=== PATIENT | female | born 1945 | race Caucasian/White ===

== ENCOUNTER → 2018-02-22 | Outpatient (CLI) | payer MEDICARE, OTHER ==
[~2018-02-22] MED LIST: ASPI81EC PO; ATEN50 PO; CARV25 PO; CARV6.25; CIPR500 PO; CIPRO500 MG PO; CLON.1 PO; CLON.2 PO; CLONIDINE; CODACE30 PO; COREG; EDARBYCLOR 40-1 EAC1 PO; FISH1000 PO; HYDACE5 PO; INSDET100 SC; INSUASPI SC; LEVOTHYROXINE; LEVSOD25 PO; LEVSOD50 PO; LISI10 PO; LOSARTAN; LOVA20 PO; MAGCHL64ER; METO50ER PO; METR500 PO; NEBI5 PO; NORTRIPTYLLINE; Nortriptyline H25 MG PO; ONDA4ODT MM; PSYL5.85P PO; Pyridium200 MG PO; RISP.5 PO; RXHYDACE PO; RXONDA4ODT MM; SULTRIDS PO; VALS80 PO
== END | disposition home or self-care (01) ==
LOC: LAB SHORT 08:43 → LAB EV 08:43
DX: N39.0 Urinary tract infection, site not specified (principal)
CPT/HCPCS: 87077; 87086; 87186

== ENCOUNTER → 2018-04-10 | Outpatient (CLI) | payer MEDICARE, OTHER | END | disposition home or self-care (01) | LOC: LAB SHORT 17:40 → LAB EV 17:40 | DX: N39.0 Urinary tract infection, site not specified (principal) | CPT/HCPCS: 87077; 87086; 87186 ==

== ENCOUNTER → 2018-04-17 | Outpatient (CLI) | payer MEDICARE, OTHER | END | disposition home or self-care (01) | LOC: LAB 13:34 → LAB SHORT 13:34 | DX: N39.0 Urinary tract infection, site not specified (principal) | CPT/HCPCS: 87077; 87086; 87186 ==

== ENCOUNTER → 2019-08-05 | Outpatient (CLI) | payer MEDICARE, OTHER ==
[2019-08-07 21:25] LABS: Adenovirus F 40/41 Not Detected (NOT DETECT); Astrovirus Not Detected (NOT DETECT); Campylobacter Sp Not Detected (NOT DETECT); Cryptosporidium Not Detected (NOT DETECT); Cyclospora Cayetanensis Not Detected (NOT DETECT); E. Coli O157 Not Detected (NOT DETECT); Entamoeba Histolytica Not Detected (NOT DETECT); Enteroaggregative E. coli-EAEC Not Detected (NOT DETECT); Enteropathogenic E. coli-EPEC Not Detected (NOT DETECT); Enterotoxigenic E. coli-ETEC Not Detected (NOT DETECT); Giardia Lamblia Not Detected (NOT DETECT); Norovirus GI/GII Not Detected (NOT DETECT); Plesiomonas Shigelloides Not Detected (NOT DETECT); Rotavirus A Not Detected (NOT DETECT); Salmonella Sp Not Detected (NOT DETECT); Sapovirus Not Detected (NOT DETECT); Shiga Toxin-prod E. coli-STEC Not Detected (NOT DETECT); Shigella/Enteroin E. coli-EIEC Not Detected (NOT DETECT); Vibrio Cholerae Not Detected (NOT DETECT); Vibrio Sp Not Detected (NOT DETECT); Yersinia Enterocolitica Not Detected (NOT DETECT)
== END | disposition home or self-care (01) ==
LOC: LAB 16:00 → LAB SHORT 16:00
PROVIDERS: Internal Medicine Gastroenterology
DX: R19.7 Diarrhea, unspecified (principal); R63.4 Abnormal weight loss
CPT/HCPCS: 0097U

== ENCOUNTER → 2021-06-25 | Outpatient (CLI) | payer MEDICARE, OTHER ==
[~2021-06-25] MED LIST changes: +AMIT10 PO; +ASPI81CH PO; +EDARBI40 MG PO; +EDARBYCLOR PO; -INSDET100 SC; +LEVEMIR100 UNIT/1 SC; -MAGCHL64ER; +MAGCHL64ER PO; +OXYC5 PO; +SITA100T2 PO; +TURMER PO
[2021-06-25 18:37] LABS: Campylobacter Sp Not Detected (NOT DETECT)
[2021-06-25 18:38] LABS: Adenovirus F 40/41 Not Detected (NOT DETECT); Astrovirus Not Detected (NOT DETECT); Cryptosporidium Not Detected (NOT DETECT); Cyclospora Cayetanensis Not Detected (NOT DETECT); E. Coli O157 Not Detected (NOT DETECT); Entamoeba Histolytica Not Detected (NOT DETECT); Enteroaggregative E. coli-EAEC Not Detected (NOT DETECT); Enteropathogenic E. coli-EPEC Detected (NOT DETECT); Enterotoxigenic E. coli-ETEC Not Detected (NOT DETECT); Giardia Lamblia Not Detected (NOT DETECT); Norovirus GI/GII Not Detected (NOT DETECT); Plesiomonas Shigelloides Not Detected (NOT DETECT); Rotavirus A Not Detected (NOT DETECT); Salmonella Sp Not Detected (NOT DETECT); Sapovirus Not Detected (NOT DETECT); Shiga Toxin-prod E. coli-STEC Not Detected (NOT DETECT); Shigella/Enteroin E. coli-EIEC Not Detected (NOT DETECT); Vibrio Cholerae Not Detected (NOT DETECT); Vibrio Sp Not Detected (NOT DETECT); Yersinia Enterocolitica Not Detected (NOT DETECT)
== END | disposition home or self-care (01) ==
LOC: LAB 12:00 → LAB SHORT 12:00 → LAB FUT 06-19 13:25
PROVIDERS: Internal Medicine Gastroenterology
DX: R19.4 Change in bowel habit (principal); R19.7 Diarrhea, unspecified
CPT/HCPCS: 0097U

== ENCOUNTER 2021-07-14 10:52 | Day surgery (SDC) | payer MEDICARE, OTHER ==
[~2021-07-14] VITALS: Ht 170.2 cm; Wt 64.9 kg
== END 2021-07-14 12:45 | disposition home or self-care (01) ==
LOC: ORSCSDS 10:52
PROVIDERS: Internal Medicine Gastroenterology
PROC: 0DBE8ZX Excision of Large Intestine, Via Natural or Artificial Opening Endoscopic, Diagnostic (ICD-10-PCS; principal; 2021-07-14 12:30)
PROC: 0DBH8ZX Excision of Cecum, Via Natural or Artificial Opening Endoscopic, Diagnostic (ICD-10-PCS; principal; 2021-07-14 12:30)
DX: R19.4 Change in bowel habit (principal); K57.30 Diverticulosis of large intestine without perforation or abscess without bleeding; D12.0 Benign neoplasm of cecum; E03.9 Hypothyroidism, unspecified; Z87.891 Personal history of nicotine dependence; E11.9 Type 2 diabetes mellitus without complications; Z79.4 Long term (current) use of insulin; Z79.899 Other long term (current) drug therapy
CPT/HCPCS: 82947; 88305; J2704; J7120

== ENCOUNTER 2021-08-12 05:38 | Inpatient (IN) | payer MEDICARE, OTHER ==
[~2021-08-12] VITALS: Ht 170.2 cm; Wt 65.9 kg
[~2021-08-12 05:38] MED LIST changes: -AMIT10 PO; +ELAVIL 10 MG PO
[2021-08-12] MEDS ORDERED: CATAPRES0.1 MG PO (06:31)
[2021-08-12] MEDS ORDERED: MIDO5 (06:31)
[2021-08-12] MEDS ORDERED: MIDO5 PO ×2 (06:32→06:34)
[2021-08-12] MEDS ORDERED: Amitriptyline H10 MG (06:38)
[2021-08-12] MEDS ORDERED: EDARBI40 MG PO (06:44)
[2021-08-12] MEDS ORDERED: CHLO25B PO (06:45)
--- NOTE | 2021-08-12 07:25 | NUR ---
History, Chart, Medications and Allergies reviewed before start of procedure.Patient confirms NPO status and agrees with scheduled surgery. Patient reports completing Chlorhexadine shower X2 prior to admission to hospital.
--- NOTE | 2021-08-12 11:00 | NUR ---
PT ARRIVED TO UNIT AT APROX 1045 FROM [place] POD 0 L JESUSITA. PT WITH NO RETURN OF SENSATION OR GROSS MVMT FOLLOWING SPINAL TO BLE AT TIME OF ARRIVAL, DENIES ANY PAIN. VSS AT TIME OF ARRIVAL TO UNIT.
--- NOTE | 2021-08-12 17:30 | NUR ---
SHIFT SUMMARY PT POD 0 L JESUSITA ANTERIOR. AQUACEL DRESSING TO L HIP C/D/I, POLAR PACK IN PLACE. PT WORKED WITH THERAPY AND UP TO CHAIR. 1 LARGE UNMEASURED VOID. TOLERATING ADA DIET WITH NO N/V. PT DENIES PAIN, REPORTS SLIGHT "BURNING" AT TOP OF INCISION, DECLINES PAIN MEDICATION OTHER THAN SCHEDULED TYLENOL.
[2021-08-13 04:11] LABS: BASOPHILS ABSOLUTE AUTO 0.03 K/mm3 (0.00-0.23); BASOPHILS PERCENT AUTO 0 % (0-2); EOSINOPHILS ABSOLUTE AUTO 0.02 K/mm3 (0.00-0.68); EOSINOPHILS PERCENT AUTO 0 % (0-6); Hemoglobin 9.7 g/dL (11.5-16.0); IMMATURE GRAN ABSOLUTE AUTO 0.05 K/mm3 (0.00-0.10); IMMATURE GRAN PERCENT AUTO 0 % (0-1); LYMPHOCYTES ABSOLUTE AUTO 2.21 K/mm3 (0.84-5.20); LYMPHOCYTES PERCENT AUTO 19 % (21-46); MONOCYTES ABSOLUTE AUTO 1.11 K/mm3 (0.16-1.47); MONOCYTES PERCENT AUTO 10 % (4-13); Mean Corpuscular HGB 29.4 pg (26.0-34.0); Mean Corpuscular HGB Conc 34.6 g/dL (31.5-36.5); Mean Corpuscular Volume 85 fL (80-100); Mean Platelet Volume 9.5 fL (9.1-12.4); NEUTROPHILS ABSOLUTE AUTO 8.15 K/mm3 (1.96-9.15); NEUTROPHILS PERCENT AUTO 70 % (41-73); Platelet Count 213 K/mm3 (150-400); RDW Coefficient Variation 14.3 % (11.7-14.2); RDW Standard Deviation 44.6 fL (35.1-46.3); White Blood Cell Count 11.57 K/mm3 (4.00-11.30)
[2021-08-13 04:28] LABS: Creatinine, Blood 1.16 mg/dL (0.40-1.00); Potassium, Blood 3.8 mmol/L (3.5-5.5)
[2021-08-13] MEDS ORDERED: ASPI81CH PO (11:47)
[2021-08-13] MEDS ORDERED: Percocet 5-3251 EACH PO (11:49)
--- NOTE | 2021-08-13 14:20 | NUR ---
DISCHARGE PT PROVIDED WITH WRITTEN AND VERBAL DISCHARGE INSTRUCTIONS, SHE REPORTED UNDERSTANDING. PT PROVIDED WITH CLEAN AQUACEL DRESSINGS. PT VERBALIZED THAT SHE HAD A WALKER AT HOME BUT STATED IT DID NOT LOOK LIKE THE WALKER PROVIDED IN THE HOSPITAL. PT WAS UNABLE TO TELL STAFF IF THE WALKER HAD WHEELS OR NOT. DR. MARCANO OFFICE CALLED REGARDING CONCERNS THAT WALKER MAY NOT BE A FRONT WHEELED WALKER. DR. GAFFNEY'S OFFICE SENT A PRESCRIPTION TO [employer] FOR A FRONT WHEELED WALKER. PT WAS EDUCATED ABOUT THIS. PRESCRIPTIONS PROVIDED TO PT AND GIVEN TO HER CAREGIVER PER PT REQUEST. PT WAS EDUCATED TO USE WALKER WITH ALL AMBULATION AND THAT THE PHYSICAL THERAPIST IS THE ONLY PERSON WHO CAN TELL HER WHEN IT IS SAFE NOT TO USE THE WALKER. PT REPORTED PAIN MANAGED A TIME OF DISCHARGE. PT MEETING ALL THERAPY GOALS, ABLE TO VOID, AND TOLERATING FOOD AND FLUIDS. PT GIVEN CATAPRES PRIOR TO DISCHARGE FOR SBP >150, THIS MEDICATION HAD BEEN GIVEN PRN MEDICATION DURING HOSPITAL STAY HOWEVER PT REPORTS TAKING THIS MEDICATION 4 TIMES A DAY A SCHEDULED MEDICATION AT HOME. VSS. PT ESCORTED OUT IN W/C BY JOSTIN QUINN.
== END 2021-08-13 12:57 | disposition home or self-care (01) | DRG 470 ==
LOC: SURS 05:38 → PRE IP 07:30 → SURS 10:12
PROVIDERS: ADMIT Orthopaedic Surgery
PROC: 0SRB04A Replacement of Left Hip Joint with Ceramic on Polyethylene Synthetic Substitute, Uncemented, Open Approach (ICD-10-PCS; principal; 2021-08-12 07:30)
DX: M16.12 Unilateral primary osteoarthritis, left hip (principal); M90.552 Osteonecrosis in diseases classified elsewhere, left thigh; E11.9 Type 2 diabetes mellitus without complications; I10 Essential (primary) hypertension; E03.9 Hypothyroidism, unspecified; Z90.89 Acquired absence of other organs; Z98.890 Other specified postprocedural states; Z98.51 Tubal ligation status; Z87.891 Personal history of nicotine dependence; Z79.4 Long term (current) use of insulin; Z79.899 Other long term (current) drug therapy; Z88.0 Allergy status to penicillin; Z88.5 Allergy status to narcotic agent; Z88.8 Allergy status to other drugs, medicaments and biological substances
CPT/HCPCS: 36415; 72170; 80048; 82947; 85025; 97110; 97116; 97162; A9270; C1776; J0171; J0690; J0735; J1100; J1815; J1885; J2250; J2405; J2704; J2795; J3010; J7120

== ENCOUNTER 2022-01-30 11:23 | Inpatient (IN) | payer MEDICARE, OTHER ==
[~2022-01-30] VITALS: Ht 172.7 cm; Wt 64.6 kg
[~2022-01-30 11:23] MED LIST changes: +Amitriptyline H10 MG; +CATAPRES0.1 MG PO; +CHLO25B PO; +MIDO5; +MIDO5 PO; +Percocet 5-3251 EACH PO
[2022-01-30 12:06] LABS: BASOPHILS ABSOLUTE AUTO 0.07 K/mm3 (0.00-0.23); BASOPHILS PERCENT AUTO 0 % (0-2); EOSINOPHILS ABSOLUTE AUTO 0.01 K/mm3 (0.00-0.68); EOSINOPHILS PERCENT AUTO 0 % (0-6); Hematocrit 45.4 % (33.0-51.0); Hemoglobin 15.2 g/dL (11.5-16.0); IMMATURE GRAN ABSOLUTE AUTO 0.53 K/mm3 (0.00-0.10); IMMATURE GRAN PERCENT AUTO 3 % (0-1); LYMPHOCYTES ABSOLUTE AUTO 1.61 K/mm3 (0.84-5.20); LYMPHOCYTES PERCENT AUTO 9 % (21-46); MONOCYTES ABSOLUTE AUTO 0.58 K/mm3 (0.16-1.47); MONOCYTES PERCENT AUTO 3 % (4-13); Mean Corpuscular HGB Conc 33.5 g/dL (31.5-36.5); Mean Corpuscular Volume 84 fL (80-100); Mean Platelet Volume 9.4 fL (9.1-12.4); NEUTROPHILS ABSOLUTE AUTO 14.43 K/mm3 (1.96-9.15); NEUTROPHILS PERCENT AUTO 84 % (41-73); Platelet Count 267 K/mm3 (150-400); RDW Coefficient Variation 15.4 % (11.7-14.2); RDW Standard Deviation 46.6 fL (35.1-46.3); Red Blood Cell Count 5.42 M/mm3 (3.80-5.20); White Blood Cell Count 17.23 K/mm3 (4.00-11.30)
[2022-01-30 12:27] LABS: Albumin, Blood 3.8 g/dL (3.4-5.0); Albumin/Globulin Ratio 0.7 (0.8-1.8); Bilirubin, Total 0.5 mg/dL (0.1-1.0); Bun/Creatinine Ratio 18.1 (12.0-20.0); Calcium, Blood 9.6 mg/dL (8.5-10.1); Creatinine, Blood 1.05 mg/dL (0.40-1.00); Globulin, Blood 5.7 g/dL (2.2-4.0); Potassium, Blood 3.4 mmol/L (3.5-5.5); Total Protein, Blood 9.5 g/dL (6.4-8.2)
[2022-01-30 12:32] LABS: Source, Urine Straight Cath
[2022-01-30 12:36] LABS: International Normalized Ratio 1.07; Prothrombin Time Results 11.2 Sec (9.7-11.5)
[2022-01-30 12:47] LABS: Appearance, Urine Clear (Clear); Bilirubin, Urine Neg (Neg); Blood, Urine 4+ (Neg); Color, Urine Yellow (P-Yellow); Glucose Qualitative, Urine 3+ (Neg); Ketones, Urine 3+ (Neg); Leukocyte Esterase, Urine Neg (Neg); Nitrite, Urine Neg (Neg); Protein, Urine 4+ (Neg); Specific Gravity, Urine 1.015 (1.003-1.022); Urobilinogen, Urine NORM (Normal); pH, Urine 6.5 (5.0-8.0)
[2022-01-30 12:58] LABS: Bacteria Few /hpf; Squamous Epithelial Cells Rare /hpf (Few)
[2022-01-30 12:59] LABS: U Amphetamine Screen Not Detected; U Barbituate Screen Not Detected; U Benzodiazapine Screen Not Detected; U Buprenorphine Screen Not Detected; U Cannabinoids Screen DETECTED; U Cocaine Screen Not Detected; U Methadone Screen Not Detected; U Methamphetamine Screen Not Detected; U Opiates Screen DETECTED; U Oxycodone Screen Not Detected; U Phencyclidine Screen Not Detected; U Propoxyphene Screen Not Detected
[2022-01-30 14:37] LABS: Glucose, CSF 123 mg/dL (40-70)
[2022-01-30 15:09] LABS: RBC Count, CSF 988 /mm3 (0-0); WBC Count, CSF 6 /mm3 (0-5)
[2022-01-30 15:12] LABS: Color, CSF No Color (No Color)
[2022-01-30 15:13] LABS: Appearance, CSF Clear (Clear); Cryptococcus Neoformans/Gattii Not Detected (NOT DETECT); Enterovirus Not Detected (NOT DETECT); Escherichia Coli K1 Not Detected (NOT DETECT); Haemophilus Influenza Not Detected (NOT DETECT); Herpes Simplex Virus 1 Not Detected (NOT DETECT); Herpes Simplex Virus 2 Not Detected (NOT DETECT); Human Herpesvirus 6 Not Detected (NOT DETECT); Human Parechovirus Not Detected (NOT DETECT); Listeria Monocytogenes Not Detected (NOT DETECT); Neisseria Meningitidis Not Detected (NOT DETECT); Streptococcus Agalactiae Not Detected (NOT DETECT); Streptococcus Pneumoniae Not Detected (NOT DETECT); Varicella Zoster Virus Not Detected (NOT DETECT)
[2022-01-30 16:12] LABS: Lymphocytes, CSF 25 % (40-80); Monocytes, CSF 8 % (15-45); Neutrophils, CSF 68 % (0-6)
[2022-01-30 16:49] LABS: RBC Count, CSF 801 /mm3 (0-0); WBC Count, CSF 15 /mm3 (0-5)
[2022-01-30 16:50] LABS: Appearance, CSF Clear (Clear); Color, CSF No Color (No Color)
--- NOTE | 2022-01-30 16:58 | NUR ---
ADMIT PT ARRIVED TO ICU 15 VIA BED AT 1630. PT IS MOANING OUT WITH ANY STIMULATION AND THRASHING IN BED SIDE TO SIDE. PT SLID OVER TO ICU BED. PT PLACED IN SBW RESTRAINTS DUE TO PULLING AT LINES/CORDS. PT IS NOT REDIRECTABLE. PT DOES NOT FOLLOW ANY COMMANDS. VITAL SIGNS STABLE, PT ON ROOM AIR. PT HYPERTENSIVE. ATTENDS IN PLACE. IV'S IN PLACE WITH MERREM INFUSING. NO FAMILY AT BEDSIDE. WILL CONTINUE TO MONITOR.
[2022-01-30 18:56] LABS: Lymphocytes, CSF 8 % (40-80); Monocytes, CSF 5 % (15-45); Neutrophils, CSF 88 % (0-6)
--- NOTE | 2022-01-30 21:33 | NUR ---
ASSUMED CARE AT 1900 PATIENT IS MOANING AND KICKING LEGS IN BED, NO EYE OPENING, AND UNABLE TO FOLLOW COMMANDS. MOVING ALL EXTREMTIES AND PUPILS EQUAL AND REACTIVE. 02 SATS >95% ON RA. LS WITH SOME CRACKLES. HR ST 100-130s, BP HYPERTENSIVE, MEDICATED PER EMAR. PATIENT HAS ATTENDS IN PLACE FOR INCONTINENCE, ATTENDS WAS DRY AND URINE OUTPUT DOCUMENTED AT 10 MLS FOR THE DAY, BLADDER SCAN SHOWED [address] SHANKS REGARDING POSSIBLE FLUIDS AND LABS TO CHECK LACTIC, WAITING FOR ORDERS. PATIENT REPOSITIONED AND ORAL CARE PROVIDED. SEE SHIFT ASSESSMENT FOR MORE INFORMATION.
[2022-01-31 03:56] LABS: Albumin, Blood 3.7 g/dL (3.4-5.0); Albumin/Globulin Ratio 0.7 (0.8-1.8); Bilirubin, Total 0.6 mg/dL (0.1-1.0); Calcium, Blood 9.4 mg/dL (8.5-10.1); Creatinine, Blood 1.07 mg/dL (0.40-1.00); Globulin, Blood 5.6 g/dL (2.2-4.0); Potassium, Blood 3.2 mmol/L (3.5-5.5); Total Protein, Blood 9.3 g/dL (6.4-8.2)
--- NOTE | 2022-01-31 07:03 | NUR ---
SHIFT SUMMARY PATIENT IS AGITATED AND CONFUSED, MOANING, YELLING, AND CURSING. OPENING EYES AND ABLE TO FORM WORDS BUT UNABLE TO FOLLOW COMMANDS, AND UNABLE TO REDIRECT, PULLING AT RESTRAINTS, PRECEDEX NOW INF. 02 SATS 98% ON RA. HR NOW SR @90s. BP STABLE, MEDICATED ONCE THIS SHIFT FOR HTN. ONE INCONTINENT VOID THIS SHIFT. REPLACING POTASSIUM. PATIENT REPOSITIONS SELF, BOOSTED IN BED SEVERAL TIMES.
--- NOTE | 2022-01-31 17:45 | NUR ---
SHIFT SUMMARY: PT WAS CONFUSED AND RESTLESS A MAJORITY OF THIS SHIFT. WHILE REPOSITIONING AT 1600 PT OPENED EYES AND WAS ABLE TO ASK QUESTIONS AND FOLLOW COMMANDS. PT HAD NO RECOLLECTION OF PRIOR EVENTS. PRECEDEX WAS THEN PLACED ON STANDBY. PT RESPONDED WELL AND IS RESTING QUIETLY IN BED. VSS. PT REMAINS ON RA SATING ABOVE 98%. 20G IV TO LEFT AND RIGHT WRIST REMAIN INTACT. WILL CONTINUE TO MONITOR AND REPORT TO ONCOMING RN.
--- NOTE | 2022-01-31 20:58 | NUR ---
ASSUMED CARE AT 1900 PATIENT IS ALERT AND ORIENTED X3, STATES SELF, YEAR, AND CITY, UNSURE OF MONTH. FOLLOWS COMMANDS AND UP TO BEDSIDE COMMODE WITH MINIMAL ASSISTANCE. STATES THE LAST THING SHE REMEMBERS IS WORKING IN HER GARDEN. 02 SATS 100% ON RA, LS CLEAR. HR SR @70s. BP STABLE, PATIENT DENIES CP/PRESSURE. URINATED 500 MLS CLEAR YELLOW AT START OF SHIFT. DENIES PAIN. REPOSITIONS SELF IN BED. CALL LIGHT IN REACH.
[2022-02-01 03:51] LABS: BASOPHILS ABSOLUTE AUTO 0.03 K/mm3 (0.00-0.23); BASOPHILS PERCENT AUTO 0 % (0-2); EOSINOPHILS ABSOLUTE AUTO 0.04 K/mm3 (0.00-0.68); EOSINOPHILS PERCENT AUTO 0 % (0-6); Hematocrit 36.6 % (33.0-51.0); Hemoglobin 12.7 g/dL (11.5-16.0); IMMATURE GRAN ABSOLUTE AUTO 0.03 K/mm3 (0.00-0.10); IMMATURE GRAN PERCENT AUTO 0 % (0-1); LYMPHOCYTES ABSOLUTE AUTO 1.86 K/mm3 (0.84-5.20); LYMPHOCYTES PERCENT AUTO 17 % (21-46); MONOCYTES ABSOLUTE AUTO 0.99 K/mm3 (0.16-1.47); MONOCYTES PERCENT AUTO 9 % (4-13); Mean Corpuscular HGB 28.7 pg (26.0-34.0); Mean Corpuscular HGB Conc 34.7 g/dL (31.5-36.5); Mean Corpuscular Volume 83 fL (80-100); Mean Platelet Volume 9.1 fL (9.1-12.4); NEUTROPHILS ABSOLUTE AUTO 7.94 K/mm3 (1.96-9.15); NEUTROPHILS PERCENT AUTO 73 % (41-73); Platelet Count 146 K/mm3 (150-400); RDW Coefficient Variation 14.8 % (11.7-14.2); RDW Standard Deviation 44.5 fL (35.1-46.3); Red Blood Cell Count 4.43 M/mm3 (3.80-5.20); White Blood Cell Count 10.89 K/mm3 (4.00-11.30)
[2022-02-01 04:12] LABS: Bun/Creatinine Ratio 35.9 (12.0-20.0); Calcium, Blood 8.9 mg/dL (8.5-10.1); Creatinine, Blood 1.03 mg/dL (0.40-1.00); Potassium, Blood 3.4 mmol/L (3.5-5.5)
--- NOTE | 2022-02-01 05:34 | NUR ---
SHIFT SUMMARY PATIENT IS ALERT AND ORIENTED X3-4, FORGETFULL AT TIMES AND HAS TROUBLE RECALLING THINGS LIKE WHAT MEDICATIONS SHE TAKES. FOLLOWS COMMANDS AND UP TO BSC TO VOID. 02 SATS 100% ON RA, LS CLEAR T/O. HR SR @80s. BP STABLE. MEDICATED PER EMAR FOR FULL BODY ACHES AND A HEADACHE. PATIENT ABLE TO REPOSITION SELF IN BED AND GET UP WITH MINIMAL ASSISTANCE. BED BATH DONE. CALL LIGHT IN REACH.
--- NOTE | 2022-02-01 10:59 | NUR ---
ASSUMED CARE OF PATIENT UPON HER TRANSFER FROM ICU, ARRIVED AT 1047 VIA BED. SHE IS A&O X 2-3, SLOW TO RESPOND. STATES SHE IS FEELING "LOUSY", ENDORSES NAUSEA (MEDICATED WITH ZOFRAN JUST PRIOR TO TRANSFER), IS BELCHING, NO EMESIS AT THIS TIME. HAS SCATTERED BRUISES AND ABRASIONS ON ALL EXTREMITIES, MOVING SLOWLY TO BSC. DENIES PAIN.
--- NOTE | 2022-02-01 17:53 | NUR ---
SHIFT SUMMARY: HYPERTENSION PERSISTS, LAST WAS 175/101 HR 86, WHICH PT STATED WAS NORMAL FOR HER. LABETOLOL GIVEN AFTER TRANSFER FROM ICU, COREG PO JUST GIVEN. C/O GENERALIZED DISCOMFORT, MEDICATED WITH TYLENOL. SHE IS ALERT, BUT SEEMS A BIT CONFUSED, MOVING IN SLOW MOTION. [place] [facility] [place] AND ONCE DID IT ON HER OWN; GAIT IS A BIT WEAK. HAS MULTIPLE BRUISES ON ARMS AND LEGS IN VARYING DEGREES OF SEVERITY. AREAS OF SWELLING AND TENDERNESS ON EACH ARM, POSSIBLY FROM INFILTRATED IV'S.
[2022-02-02] MEDS ORDERED: HYDROCODONE-AC1 EA17 PO (03:33)
--- NOTE | 2022-02-02 04:04 | NUR ---
SHIFT SUMMARY NO ACUTE CHANGES TO PT CONDITION. PT HAS NO COMPLAINTS AND IS ABLE TO SLEEP OFF AND ON THIS EVENING. CALL LIGHT IS WITHIN REACH. WILL CONTINUE TO MONITOR.
[2022-02-02 06:12] LABS: BASOPHILS ABSOLUTE AUTO 0.02 K/mm3 (0.00-0.23); BASOPHILS PERCENT AUTO 0 % (0-2); EOSINOPHILS ABSOLUTE AUTO 0.02 K/mm3 (0.00-0.68); EOSINOPHILS PERCENT AUTO 0 % (0-6); Hematocrit 43.1 % (33.0-51.0); Hemoglobin 14.7 g/dL (11.5-16.0); IMMATURE GRAN ABSOLUTE AUTO 0.04 K/mm3 (0.00-0.10); IMMATURE GRAN PERCENT AUTO 0 % (0-1); LYMPHOCYTES ABSOLUTE AUTO 2.25 K/mm3 (0.84-5.20); LYMPHOCYTES PERCENT AUTO 17 % (21-46); MONOCYTES PERCENT AUTO 8 % (4-13); Mean Corpuscular HGB 28.2 pg (26.0-34.0); Mean Corpuscular HGB Conc 34.1 g/dL (31.5-36.5); Mean Corpuscular Volume 83 fL (80-100); Mean Platelet Volume 10.3 fL (9.1-12.4); NEUTROPHILS ABSOLUTE AUTO 9.81 K/mm3 (1.96-9.15); NEUTROPHILS PERCENT AUTO 74 % (41-73); Platelet Count 164 K/mm3 (150-400); RDW Coefficient Variation 14.6 % (11.7-14.2); RDW Standard Deviation 44.1 fL (35.1-46.3); Red Blood Cell Count 5.21 M/mm3 (3.80-5.20); White Blood Cell Count 13.24 K/mm3 (4.00-11.30)
[2022-02-02 06:37] LABS: Anion Gap 8 mmol/L (6-16); Blood Urea Nitrogen 36 mg/dL (8-24); Bun/Creatinine Ratio 43.5 (12.0-20.0); CO2, Blood 24 mmol/L (21-32); Calcium, Blood 9.3 mg/dL (8.5-10.1); Chloride, Blood 106 mmol/L (98-108); Creatinine, Blood 0.83 mg/dL (0.40-1.00); Glomerular Filtration Rate >60 (60-); Glucose, Blood 154 mg/dL (70-99); Sodium, Blood 138 mmol/L (136-145)
--- NOTE | 2022-02-02 16:55 | NUR ---
SHIFT SUMMARY PT RESTING QUIETLY AT START OF SHIFT. WOKE EASILY FOR CARE. BP ELEVATED MOST OF THE DAY; DR SHANKS NOTIFIED. NEW ORDERS PLACED. BP MEDS ADJUSTED ALL DAY LONG. DR COYNE TO TO SEE PT AND OBSERVE PT MOBILITY. PT UP OOB ON HER OWN, BUT A LITTLE SHAKEY. P/T ORDERED AND LATER TO TO ASSESS PT. WALKER ADJUSTED FOR PT TO USE, IMPROVING STABILITY. PT C/O NOT FEELING WELL OFF AND ON TODAY. MAINLY WHEN BP WOULD BE ELEVATED. WHEN BP DECREASED, PT SEEMED TO FEEL BETTER AND SAT UP TO EAT. PT RECENTLY C/O BEING COLD WITH FACE FLUSHED; TEMP WNL'S, SEE CHART. BED ALARM ON FOR SAFETY. CALL LT IN REACH. CONTINUING TO MONITOR.
--- NOTE | 2022-02-03 04:30 | NUR ---
SHIFT SUMMARY ASSUMED CARE OF PT AT 1900. PT IS A/OX4 BUT STILL CONFUSED ABOUT HOW SHE GOT TO THE HOSPITAL. HEART SOUNDS REGULAR, LUNG SOUNDS CLEAR. PT WAS A 1P ASSIT TO BATHROOM WITH WALKER. PT WAS VERY TIRED AND SLEPT T/O THE NIGHT. PT BP REMAINED HIGH, MEDICATED PER EMAR.
[2022-02-03 06:00] LABS: BASOPHILS ABSOLUTE AUTO 0.03 K/mm3 (0.00-0.23); BASOPHILS PERCENT AUTO 0 % (0-2); EOSINOPHILS ABSOLUTE AUTO 0.04 K/mm3 (0.00-0.68); EOSINOPHILS PERCENT AUTO 0 % (0-6); Hematocrit 41.8 % (33.0-51.0); Hemoglobin 14.6 g/dL (11.5-16.0); IMMATURE GRAN ABSOLUTE AUTO 0.04 K/mm3 (0.00-0.10); IMMATURE GRAN PERCENT AUTO 0 % (0-1); LYMPHOCYTES ABSOLUTE AUTO 2.75 K/mm3 (0.84-5.20); LYMPHOCYTES PERCENT AUTO 22 % (21-46); MONOCYTES ABSOLUTE AUTO 1.22 K/mm3 (0.16-1.47); MONOCYTES PERCENT AUTO 10 % (4-13); Mean Corpuscular HGB 28.3 pg (26.0-34.0); Mean Corpuscular HGB Conc 34.9 g/dL (31.5-36.5); Mean Corpuscular Volume 81 fL (80-100); NEUTROPHILS ABSOLUTE AUTO 8.64 K/mm3 (1.96-9.15); NEUTROPHILS PERCENT AUTO 68 % (41-73); Platelet Count 206 K/mm3 (150-400); RDW Coefficient Variation 14.3 % (11.7-14.2); RDW Standard Deviation 42.3 fL (35.1-46.3); Red Blood Cell Count 5.15 M/mm3 (3.80-5.20); White Blood Cell Count 12.72 K/mm3 (4.00-11.30)
[2022-02-03 06:17] LABS: Anion Gap 9 mmol/L (6-16); Blood Urea Nitrogen 46 mg/dL (8-24); Bun/Creatinine Ratio 52.6 (12.0-20.0); CO2, Blood 24 mmol/L (21-32); Calcium, Blood 9.7 mg/dL (8.5-10.1); Chloride, Blood 101 mmol/L (98-108); Creatinine, Blood 0.87 mg/dL (0.40-1.00); Glomerular Filtration Rate >60 (60-); Glucose, Blood 170 mg/dL (70-99); Potassium, Blood 3.2 mmol/L (3.5-5.5); Sodium, Blood 134 mmol/L (136-145)
--- NOTE | 2022-02-03 13:45 | NUR ---
SHIFT SUMMARY PT WOKE EASILY THIS AM FOR CARE. REPORTED FEELING BETTER TODAY. PT LOOKED BETTER WELL. UP TO EOB TO EAT BREAKFAST AND LUNCH. HAS BEEN AWAKE THRU OUT THE DAY TODAY, WHERE YESTERDAY, PT SLEPT MOST OF DAY. UP TO BTHRM NEEDED; SOMETIMES INDEPENDENTLY NOT USING CALL LT. BP MUCH BETTER CONTROLLED TODAY; SEE CHART. BP MEDS ADJUSTED AGAIN THIS AM. PT TO BE D/C'D TODAY. METEOROLOGY TEACHER IN TO TALK WITH PT; FWW TO BE DELIVERED TO RM PRIOR TO D/C HOME. PT TRYING TO REACH RM MATE AT HOME. PT REPORTED THIS AFTERNOON THAT SHE IS MISSING HER LOWER DENTURES. ONLY UPPER DENTURES IN CUP AT START OF SHIFT YESTERDAY. PT UNABLE TO REACH RM MATE TO SEE IF THEY ARE AT HOME. PT UNSURE IF SHE HAD THEM WHEN SHE CAME IN. DENIED FURTHER NEEDS AT THIS TIME. CALL LT IN REACH.
[2022-02-03] MEDS ORDERED: CARV25 PO (15:18)
[2022-02-03] MEDS ORDERED: HYDCHL25 PO (15:18)
[2022-02-03] MEDS ORDERED: ZESTRIL40 M1 PO (15:19)
== END 2022-02-03 18:00 | disposition home health service (06) | DRG 871 ==
LOC: ER 11:23 → PCU 15:34 → ICUW 16:31 → MEDS 02-01 10:43
PROVIDERS: Emergency Medicine; Family Medicine; Student in an Organized Health Care Education/Training Program; ADMIT Hospitalist
PROC: 3E03329 Introduction of Other Anti-infective into Peripheral Vein, Percutaneous Approach (ICD-10-PCS; principal; 2022-01-30)
PROC: 009U3ZX Drainage of Spinal Canal, Percutaneous Approach, Diagnostic (ICD-10-PCS; 2022-01-30)
DX: A41.9 Sepsis, unspecified organism (principal); G92.8 Other toxic encephalopathy; A87.9 Viral meningitis, unspecified; E87.6 Hypokalemia; T40.711A Poisoning by cannabis, accidental (unintentional), initial encounter; R45.1 Restlessness and agitation; J84.10 Pulmonary fibrosis, unspecified; I12.9 Hypertensive chronic kidney disease with stage 1 through stage 4 chronic kidney disease, or unspecified chronic kidney disease; N18.30 Chronic kidney disease, stage 3 unspecified; I16.0 Hypertensive urgency; Z98.890 Other specified postprocedural states; Z98.51 Tubal ligation status; Z90.89 Acquired absence of other organs; Z87.891 Personal history of nicotine dependence; Z79.890 Hormone replacement therapy; Z88.0 Allergy status to penicillin; Z88.5 Allergy status to narcotic agent; Z79.4 Long term (current) use of insulin; Z79.82 Long term (current) use of aspirin; Z79.899 Other long term (current) drug therapy
CPT/HCPCS: 36415; 62270; 70450; 71045; 74176; 80048; 80053; 81001; 82945; 83605; 83690; 84157; 84443; 84484; 85025; 85610; 85730; 87040; 87070; 87205; 87483; 89051; 93005; 93010; 93306; 96365; 96366; 96368; 96375; 96376; 97116; 97162; 97530; 99285-25; A9270; J0133; J0290; J0360; J0696; J1200; J1630; J1650; J2060; J2185; J2405; J3370; J3480; J7030; J7040; J7060

== ENCOUNTER → 2023-06-21 | Outpatient (CLI) | payer MEDICARE, OTHER ==
[~2023-06-21] MED LIST changes: +HYDCHL25 PO; +HYDROCODONE-AC1 EA17 PO; +ZESTRIL40 M1 PO
== END ==
LOC: LAB SHORT 14:30 → LAB 14:30
DX: N39.490 Overflow incontinence (principal)
CPT/HCPCS: 87077; 87086; 87186

== ENCOUNTER 2023-09-21 06:01 | Day surgery (SDC) | payer MEDICARE, OTHER ==
[~2023-09-21] VITALS: Ht 170.2 cm; Wt 59.9 kg
[2023-09-21] VITALS (14 sets, daily range): BP systolic 111–177; BP diastolic 65–96
[~2023-09-21 06:01] MED LIST changes: +AMIT25 PO; +CATAPRES-TTS 11 EAC1; +CATAPRES0.3 MG PO; +INSULIN LANTUS SC; +MAGN84 PO; +Synthroid/Levothroid PO
--- NOTE | 2023-09-21 18:44 | NUR ---
SHIFT SUMMARY POD0 FOR R JESUSITA. AQUACEL TO R HIP C/D/I. ICE IN PLACE, SCD'S. VOIDING AND WORKED WITH THERAPY. 1 ASSIST FWW. GB. TOELRATING PO INTAKE, MEDICATED FOR PAIN PER EMAR. VSS. CALL LIGHT IN REACH CHAIR/BED ALARM FOR SAFETY.
[2023-09-22 01:02] VITALS: BP 156/78
[2023-09-22 03:58] VITALS: BP 153/76
--- NOTE | 2023-09-22 04:29 | NUR ---
SHIFT SUMMARY PT POD 0 RIGHT TOTAL HIP, PT HAS RESTED WELL T/O THE NIGHT. PAIN MANAGED WITH MEDS PER EMAR. DRESSING C/D/I TO LEFT HIP. PT TOLERATING PO INTAKE AND IS VOIDING. POST OP VITALS ARE STABLE. PLAN IS FOR DC TODAY.
[2023-09-22 04:56] LABS: BASOPHILS ABSOLUTE AUTO 0.01 K/mm3 (0.00-0.23); BASOPHILS PERCENT AUTO 0 % (0-2); EOSINOPHILS ABSOLUTE AUTO 0.01 K/mm3 (0.00-0.68); EOSINOPHILS PERCENT AUTO 0 % (0-6); Hematocrit 28.8 % (33.0-51.0); IMMATURE GRAN ABSOLUTE AUTO 0.05 K/mm3 (0.00-0.10); IMMATURE GRAN PERCENT AUTO 0 % (0-1); LYMPHOCYTES ABSOLUTE AUTO 1.85 K/mm3 (0.84-5.20); LYMPHOCYTES PERCENT AUTO 16 % (21-46); MONOCYTES ABSOLUTE AUTO 0.85 K/mm3 (0.16-1.47); MONOCYTES PERCENT AUTO 7 % (4-13); Mean Corpuscular HGB 29.3 pg (26.0-34.0); Mean Corpuscular HGB Conc 34.7 g/dL (31.5-36.5); Mean Corpuscular Volume 85 fL (80-100); Mean Platelet Volume 9.6 fL (9.1-12.4); NEUTROPHILS ABSOLUTE AUTO 9.15 K/mm3 (1.96-9.15); NEUTROPHILS PERCENT AUTO 77 % (41-73); Platelet Count 200 K/mm3 (150-400); RDW Coefficient Variation 14.8 % (11.7-14.2); RDW Standard Deviation 45.7 fL (35.1-46.3); Red Blood Cell Count 3.41 M/mm3 (3.80-5.20); White Blood Cell Count 11.92 K/mm3 (4.00-11.30)
[2023-09-22 05:17] LABS: Bun/Creatinine Ratio 27.7 (12.0-20.0); Calcium, Blood 8.7 mg/dL (8.5-10.1); Creatinine, Blood 0.87 mg/dL (0.40-1.00); Potassium, Blood 4.2 mmol/L (3.5-5.5)
[2023-09-22 07:24] VITALS: BP 145/74
[2023-09-22] MEDS ORDERED: Percocet 5-3251 EACH PO (09:20)
[2023-09-22] MEDS ORDERED: Aspir 8181 MG PO (09:22)
--- NOTE | 2023-09-22 13:44 | NUR ---
DISCHARGE: PACKET PRINTED AND PT EDUCATED. IV DC'D WNL, TIP INTACT. PT GIVEN EXTRA AQUACEL DRESSING AND INSTRUCTIONS. PT REPORTS THAT SHE DOES NOT HAVE OUT PT THERAPY SCHEDULED OR HER FOLLOW UP APPOINTMENTS. THIS RN ENCOURAGED PT TO MAKE THOSE CALLS TO SET UP APPOINTMENTS SOON POSSIBLE. PT LEFT UNIT VIA WHEELCHAIR AT ABOUT 1130 WITH KAI WEINER
== END 2023-09-22 12:15 | disposition home or self-care (01) ==
LOC: ORSCMMR 06:01 → ORD 07:30 → SURS 09:55 → ORSCMMR 09-22 12:15
PROVIDERS: Orthopaedic Surgery; Physician Assistant Surgical
PROC: 0SR90JZ Replacement of Right Hip Joint with Synthetic Substitute, Open Approach (ICD-10-PCS; principal; 2023-09-21 07:30)
DX: M16.11 Unilateral primary osteoarthritis, right hip (principal); M87.9 Osteonecrosis, unspecified; I10 Essential (primary) hypertension; E11.9 Type 2 diabetes mellitus without complications; E03.9 Hypothyroidism, unspecified; Z87.891 Personal history of nicotine dependence; Z79.4 Long term (current) use of insulin; Z79.899 Other long term (current) drug therapy
CPT/HCPCS: 36415; 72170; 80048; 82947; 85025; 97110; 97116; 97162; A9270; C1713; C1776; J0171; J0690; J0735; J1100; J1815; J1885; J2250; J2405; J2704; J2795; J3010; J7120

== ENCOUNTER 2023-09-28 12:48 | Emergency (ER) | payer MEDICARE, OTHER ==
[~2023-09-28] VITALS: Ht 170.2 cm; Wt 59.0 kg
[~2023-09-28 12:48] MED LIST changes: +Aspir 8181 MG PO
[2023-09-28 12:54] VITALS: BP 153/98
[2023-09-28 13:39] LABS: BASOPHILS ABSOLUTE AUTO 0.02 K/mm3 (0.00-0.23); BASOPHILS PERCENT AUTO 0 % (0-2); EOSINOPHILS PERCENT AUTO 0 % (0-6); Hematocrit 34.7 % (33.0-51.0); Hemoglobin 12.2 g/dL (11.5-16.0); IMMATURE GRAN ABSOLUTE AUTO 0.06 K/mm3 (0.00-0.10); IMMATURE GRAN PERCENT AUTO 0 % (0-1); LYMPHOCYTES ABSOLUTE AUTO 1.69 K/mm3 (0.84-5.20); LYMPHOCYTES PERCENT AUTO 12 % (21-46); MONOCYTES ABSOLUTE AUTO 0.72 K/mm3 (0.16-1.47); MONOCYTES PERCENT AUTO 5 % (4-13); Mean Corpuscular HGB 29.5 pg (26.0-34.0); Mean Corpuscular HGB Conc 35.2 g/dL (31.5-36.5); Mean Corpuscular Volume 84 fL (80-100); Mean Platelet Volume 8.9 fL (9.1-12.4); NEUTROPHILS ABSOLUTE AUTO 11.19 K/mm3 (1.96-9.15); NEUTROPHILS PERCENT AUTO 82 % (41-73); Platelet Count 531 K/mm3 (150-400); RDW Coefficient Variation 14.9 % (11.7-14.2); RDW Standard Deviation 44.8 fL (35.1-46.3); Red Blood Cell Count 4.13 M/mm3 (3.80-5.20); White Blood Cell Count 13.68 K/mm3 (4.00-11.30)
[2023-09-28 14:02] LABS: Albumin, Blood 3.2 g/dL (3.4-5.0); Albumin/Globulin Ratio 0.6 (0.8-1.8); Bilirubin, Total 0.5 mg/dL (0.1-1.0); Bun/Creatinine Ratio 18.4 (12.0-20.0); Calcium, Blood 9.6 mg/dL (8.5-10.1); Creatinine, Blood 1.14 mg/dL (0.40-1.00); Globulin, Blood 5.8 g/dL (2.2-4.0); Potassium, Blood 3.6 mmol/L (3.5-5.5)
[2023-09-28 17:35] LABS: Influenza A, PCR NEGATIVE (NEGATIVE); Influenza B, PCR NEGATIVE (NEGATIVE); Resp Syncytial Virus, PCR NEGATIVE (NEGATIVE); SARS-Cov-2 (COVID-19) PCR, MMC NEGATIVE (NEGATIVE)
[2023-09-28] MEDS ORDERED: CODACE30 PO ×2 (18:08→18:10)
[2023-09-28] MEDS ORDERED: ONDA4 PO (18:08)
== END 2023-09-28 18:35 | disposition home or self-care (01) ==
LOC: ER 12:48
PROVIDERS: Student in an Organized Health Care Education/Training Program
DX: B34.9 Viral infection, unspecified (principal); Z87.891 Personal history of nicotine dependence; Z11.52 Encounter for screening for COVID-19
CPT/HCPCS: 0241U; 73502; 80053; 84484; 85025; 93005; 93010; 96361; 96374; 99284-25; A9270; J2405; J7030

== ENCOUNTER → 2023-10-06 | Outpatient (CLI) | payer MEDICARE, OTHER ==
[~2023-10-06] MED LIST changes: +ONDA4 PO
== END ==
LOC: LAB SHORT 12:33 → LAB 12:33
DX: N39.0 Urinary tract infection, site not specified (principal)
CPT/HCPCS: 87086

== ENCOUNTER 2023-10-13 12:01 | Inpatient (IN) | payer MEDICARE, OTHER ==
[~2023-10-13] VITALS: Ht 172.7 cm; Wt 62.6 kg
[2023-10-13 16:14] LABS: BASOPHILS ABSOLUTE AUTO 0.01 K/mm3 (0.00-0.23); BASOPHILS PERCENT AUTO 0 % (0-2); EOSINOPHILS ABSOLUTE AUTO 0.14 K/mm3 (0.00-0.68); EOSINOPHILS PERCENT AUTO 2 % (0-6); Hemoglobin 10.6 g/dL (11.5-16.0); IMMATURE GRAN ABSOLUTE AUTO 0.04 K/mm3 (0.00-0.10); IMMATURE GRAN PERCENT AUTO 0 % (0-1); LYMPHOCYTES ABSOLUTE AUTO 1.61 K/mm3 (0.84-5.20); LYMPHOCYTES PERCENT AUTO 18 % (21-46); MONOCYTES ABSOLUTE AUTO 0.52 K/mm3 (0.16-1.47); MONOCYTES PERCENT AUTO 6 % (4-13); Mean Corpuscular HGB 29.7 pg (26.0-34.0); Mean Corpuscular HGB Conc 35.3 g/dL (31.5-36.5); Mean Corpuscular Volume 84 fL (80-100); Mean Platelet Volume 9.5 fL (9.1-12.4); NEUTROPHILS ABSOLUTE AUTO 6.86 K/mm3 (1.96-9.15); NEUTROPHILS PERCENT AUTO 75 % (41-73); Platelet Count 375 K/mm3 (150-400); RDW Coefficient Variation 15.4 % (11.7-14.2); RDW Standard Deviation 46.8 fL (35.1-46.3); Red Blood Cell Count 3.57 M/mm3 (3.80-5.20); White Blood Cell Count 9.18 K/mm3 (4.00-11.30)
[2023-10-13 16:38] LABS: Bun/Creatinine Ratio 25.4 (12.0-20.0); Calcium, Blood 9.3 mg/dL (8.5-10.1); Creatinine, Blood 0.71 mg/dL (0.40-1.00); Potassium, Blood 4.5 mmol/L (3.5-5.5)
[2023-10-13 18:46] VITALS: BP 156/75
--- NOTE | 2023-10-13 18:50 | NUR ---
ARRIVAL TO SURGICAL UNIT 4 PERSON TX TO HOSPITAL BED. ALERT, ORIENTED, & PLEASANT. STATES PAIN IS OK DUE TO PAIN PILL SHE TOOK IN ED. R HIP w/ NO NOTICABLE BRUISING & SURGICAL SITE ON ANTERIOR R HIP WNL. STATES SHE FELL 3-4 DAYS AGO & WAS WAITING UNTIL SCHEDULED F/U APPOINTMENT w/ DR MARCANO TODAY. IS NOT TAKING [facility] THERAPY ANYMORE.
[2023-10-13 19:38] VITALS: BP 146/78
[2023-10-13] MEDS ORDERED: CATAPRES0.3 MG PO ×2 (19:38)
[2023-10-14] VITALS (23 sets, daily range): BP systolic 97–179; BP diastolic 62–91
[2023-10-14 05:31] LABS: Hemoglobin 9.2 g/dL (11.5-16.0); Mean Corpuscular HGB 28.9 pg (26.0-34.0); Mean Corpuscular HGB Conc 34.1 g/dL (31.5-36.5); Mean Corpuscular Volume 85 fL (80-100); Platelet Count 294 K/mm3 (150-400); RDW Coefficient Variation 15.2 % (11.7-14.2); RDW Standard Deviation 47.1 fL (35.1-46.3); Red Blood Cell Count 3.18 M/mm3 (3.80-5.20); White Blood Cell Count 6.15 K/mm3 (4.00-11.30)
[2023-10-14 05:58] LABS: Bun/Creatinine Ratio 25.9 (12.0-20.0); Calcium, Blood 8.8 mg/dL (8.5-10.1); Creatinine, Blood 0.89 mg/dL (0.40-1.00); Potassium, Blood 4.3 mmol/L (3.5-5.5)
--- NOTE | 2023-10-14 06:32 | NUR ---
PT VSS T/O NIGHT. PT REP PAIN TOLERABLE W/REPOSITIONING AND TORADOL. PT NPO POST MIDNIGHT, IVF STARTED THIS AM. PT UP TO BSC W/FWW+1 ASSIST, PIVOT TX. PLAN FOR SURGERY TODAY.
--- NOTE | 2023-10-14 14:16 | NUR ---
PT RECENTLY TO SDS BY BED WITH ASSIST. Patient confirms NPO status and agrees with scheduled surgery. Pre-Op teaching done. Pt verbalizes understanding. Lungs clear T/O to Auscultation.
--- NOTE | 2023-10-14 15:20 | NUR ---
PT BACK TO ROOM 214 BY BED WITH MULTIPLE ASSIST WITH BOTANY TEACHER. PT'S RN ON SURGICAL FLOOR UPDATED ON PT'S STATUS. PT PROCEDURE WAS CANCELLED FOR TODAY.
--- NOTE | 2023-10-14 18:58 | NUR ---
10/14/23 1858 Josephine Carl PT RECEIVED 1 UNIT OF PRBCS, ORDERED BY DR. BROWN. NO TRANSFUSION REACTION NOTED
--- NOTE | 2023-10-14 20:35 | NUR ---
ASSUMED CARE/POST OP PT IS AWAKE, ALERT, ANSWERING QUESTIONS APPROPRIATLY, VSS, SPO2 >97% ON RA, RESP UNLABORED, DECREASED LUNG SOUNDS BILAT BASES, AQUACEL DRSG C/D/I TO R,HIP, CIRC WNL, DENIES N/T, POLAR PACK IN PLACE, 05/20 PAIN REPORTED, PT MEDICATED PRIOR TO LEAVING PACU, STATES PAIN IS IMPROVING, PUREWICK DEVICE PLACED PER PT CONSENT, CLEAR YELLOW URINE NOTED IN CANISTER, BED IN LOW POSITION, BED ALARM IS ON FOR SAFETY, CALL LIGHT IN REACH, WCTM
[2023-10-15 03:39] VITALS: BP 147/68
[2023-10-15 05:06] LABS: BASOPHILS ABSOLUTE AUTO 0.01 K/mm3 (0.00-0.23); BASOPHILS PERCENT AUTO 0 % (0-2); EOSINOPHILS PERCENT AUTO 0 % (0-6); Hematocrit 28.1 % (33.0-51.0); Hemoglobin 9.7 g/dL (11.5-16.0); IMMATURE GRAN ABSOLUTE AUTO 0.05 K/mm3 (0.00-0.10); IMMATURE GRAN PERCENT AUTO 1 % (0-1); LYMPHOCYTES ABSOLUTE AUTO 1.32 K/mm3 (0.84-5.20); LYMPHOCYTES PERCENT AUTO 13 % (21-46); MONOCYTES ABSOLUTE AUTO 0.83 K/mm3 (0.16-1.47); MONOCYTES PERCENT AUTO 8 % (4-13); Mean Corpuscular HGB 29.4 pg (26.0-34.0); Mean Corpuscular HGB Conc 34.5 g/dL (31.5-36.5); Mean Corpuscular Volume 85 fL (80-100); Mean Platelet Volume 8.8 fL (9.1-12.4); NEUTROPHILS ABSOLUTE AUTO 8.01 K/mm3 (1.96-9.15); NEUTROPHILS PERCENT AUTO 78 % (41-73); Platelet Count 290 K/mm3 (150-400); RDW Coefficient Variation 14.9 % (11.7-14.2); RDW Standard Deviation 45.9 fL (35.1-46.3); White Blood Cell Count 10.22 K/mm3 (4.00-11.30)
[2023-10-15 05:33] LABS: Albumin, Blood 2.5 g/dL (3.4-5.0); Albumin/Globulin Ratio 0.6 (0.8-1.8); Bilirubin, Total 0.4 mg/dL (0.1-1.0); Bun/Creatinine Ratio 27.8 (12.0-20.0); Calcium, Blood 8.4 mg/dL (8.5-10.1); Creatinine, Blood 0.65 mg/dL (0.40-1.00); Globulin, Blood 4.3 g/dL (2.2-4.0); Total Protein, Blood 6.8 g/dL (6.4-8.2)
--- NOTE | 2023-10-15 06:08 | NUR ---
SHIFT SUMMARY POD #1 R.HIP STEM REVISION JULIA FRYE C/D/I, CIRC WNL, POLAR PACK IN PLACE, VSS, ON RA, PAIN MANAGED PER EMAR, TOLERATING PO FLUIDS, PUREWICK DEVICE IN PLACE, CLEAR DARM YELLOW URINE NOTED, PT CALLS FOR ASSISTANCE PRN, COOPERATIVE W/CARE, BED ALARM FOR SAFETY, WATCHING TV THIS AM, CALL LIGHT IN REACH, WCTM & REPORT TO DAY RN
[2023-10-15 07:31] VITALS: BP 144/84
[2023-10-15 14:41] VITALS: BP 117/69
--- NOTE | 2023-10-15 16:31 | NUR ---
SHIFT SUMMARY PATIENT IS AOX4, HAS SOME FORGETFULNESS, ANSWERS QUESTIONS APPROPRIATELY. FOLLOWS DIRECTIONS. ABLE TO STAND AND PIVOT WITH 1 ASSIST, GB, AND FWW. TTWB ON RIGHT LEG. WORKED WITH PT AND OT TODAY. TOLERATES PO INTAKE, MEDICATED PER EMAR. CALLS APPROPRIATELY. VSS. CALL LIGHT IN REACH.
[2023-10-15 21:00] VITALS: BP 126/70
[2023-10-16 04:13] VITALS: BP 111/63
--- NOTE | 2023-10-16 08:09 | NUR ---
SHIFT SUMMARY NOC. PT A/O X4. AQUACEL C/D/I. PT MEDICATED FOR PAIN WITH OXY WITH RELIEF OF SX. PT TRANSFERS TO BEDSIDE COMMODE FOR VOIDING. PT TOLERATING PO INTAKE. PT CALLS APPROPRIATLY. PT RESTED WITH EYES CLOSED AND CALL LIGHT IN REACH.
[2023-10-16 08:11] VITALS: BP 136/71
[2023-10-16 13:50] LABS: SARS-Cov-2 (COVID-19) PCR, MMC NEGATIVE (NEGATIVE)
[2023-10-16 14:20] VITALS: BP 101/55
--- NOTE | 2023-10-16 15:29 | NUR ---
SHIFT SUMMARY PT A&OX4, VSS/RA, CRISPIN PO, VOIDING/BSC, AMB FWW/GB, PAIN MANAGED, IV DC'D. REPORT CALLED TO ABRAM ANDERSON/ANNABELLE BARBOZA. LEFT WITH [facility] WITH ALL PERSONAL ITEMS.
== END 2023-10-16 15:28 | DRG 467 ==
LOC: ER 12:01 → SURS 17:51
PROVIDERS: Emergency Medicine; Family Medicine; Nurse Practitioner Acute Care; Orthopaedic Surgery; Student in an Organized Health Care Education/Training Program; ADMIT Internal Medicine
PROC: 0SPR0JZ Removal of Synthetic Substitute from Right Hip Joint, Femoral Surface, Open Approach (ICD-10-PCS; 2023-10-14)
PROC: 0SRR03Z Replacement of Right Hip Joint, Femoral Surface with Ceramic Synthetic Substitute, Open Approach (ICD-10-PCS; principal; 2023-10-14 16:00)
DX: S72.21XA Displaced subtrochanteric fracture of right femur, initial encounter for closed fracture (principal); D62 Acute posthemorrhagic anemia; M97.01XA Periprosthetic fracture around internal prosthetic right hip joint, initial encounter; R64 Cachexia; I16.0 Hypertensive urgency; E87.6 Hypokalemia; N18.30 Chronic kidney disease, stage 3 unspecified; J84.10 Pulmonary fibrosis, unspecified; D63.1 Anemia in chronic kidney disease; I12.9 Hypertensive chronic kidney disease with stage 1 through stage 4 chronic kidney disease, or unspecified chronic kidney disease; W18.30XA Fall on same level, unspecified, initial encounter; G31.84 Mild cognitive impairment of uncertain or unknown etiology; E11.22 Type 2 diabetes mellitus with diabetic chronic kidney disease; E03.9 Hypothyroidism, unspecified; Z88.0 Allergy status to penicillin; Z88.5 Allergy status to narcotic agent; Z88.8 Allergy status to other drugs, medicaments and biological substances; Z86.19 Personal history of other infectious and parasitic diseases; Z79.890 Hormone replacement therapy; Z79.82 Long term (current) use of aspirin; Z79.4 Long term (current) use of insulin; Z79.899 Other long term (current) drug therapy; Z68.21 Body mass index [BMI] 21.0-21.9, adult
CPT/HCPCS: 36415; 72170; 73502; 80048; 80053; 82947; 85025; 85027; 86850; 86900; 86901; 86923; 94760; 97129; 97162; 97165; 97530; 99284-25; A9270; C1776; J0171; J0360; J0690; J0735; J1100; J1170; J1650; J1885; J2371; J2405; J2704; J2795; J3010; J7030; J7120; P9016; U0002